=== PATIENT | female | born 1990 | race African-American/Black ===

== ENCOUNTER 2021-06-06 15:05 | Outpatient (REF) | payer MEDICAID, SELFPAY ==
[2021-06-07 05:47] LABS: CT PCR NOT DETECTED (Not Detect.); NG PCR NOT DETECTED (Not Detect.)
[2021-06-07 09:33] LABS: BV Int Neg Control Negative (Negative); BV Int Pos Control Positive (Positive)
[2021-06-10 02:22] LABS: HPV mRNA E6/E7 rflx Not Detected (Not Detected)
== END 2021-06-06 15:06 | disposition home or self-care (01) ==
LOC: HO.LAB 15:05
PROVIDERS: PCP Nurse Practitioner Family; Visit Provider Advanced Practice Midwife
DX: Z01.419 Encounter for gynecological examination (general) (routine) without abnormal findings (principal); F12.90 Cannabis use, unspecified, uncomplicated; Z20.2 Contact with and (suspected) exposure to infections with a predominantly sexual mode of transmission; Z32.02 Encounter for pregnancy test, result negative
CPT/HCPCS: 81025; 87480; 87491; 87510; 87591; 87624; 87660; 88142

== ENCOUNTER 2021-07-06 11:09 | Outpatient (REF) | payer MEDICAID, SELFPAY ==
[2021-07-07 12:14] LABS: BV Int Neg Control Negative (Negative); BV Int Pos Control Positive (Positive)
== END 2021-07-06 11:10 | disposition home or self-care (01) ==
LOC: HO.LAB 11:09
PROVIDERS: PCP Nurse Practitioner Family; Visit Provider Advanced Practice Midwife
DX: A59.9 Trichomoniasis, unspecified (principal); Z20.2 Contact with and (suspected) exposure to infections with a predominantly sexual mode of transmission
CPT/HCPCS: 87480; 87510; 87660; 99212

== ENCOUNTER 2022-08-14 13:51 | Outpatient (REF) | payer MEDICAID, SELFPAY ==
[2022-08-15 05:34] LABS: CT PCR NOT DETECTED (Not Detect.)
[2022-08-15 05:35] LABS: NG PCR NOT DETECTED (Not Detect.)
== END 2022-08-14 13:52 | disposition home or self-care (01) ==
LOC: HO.LNP 13:51
PROVIDERS: PCP Nurse Practitioner Family; Visit Provider Advanced Practice Midwife
DX: Z01.419 Encounter for gynecological examination (general) (routine) without abnormal findings (principal); Z20.2 Contact with and (suspected) exposure to infections with a predominantly sexual mode of transmission
CPT/HCPCS: 0353U

== ENCOUNTER 2023-10-16 10:21 | Outpatient (AMB) | payer OTHER, SELFPAY ==
[2023-10-16 10:38] VITALS: BP 116/60; BMI 40.9
--- NOTE | 2023-10-16 10:38 | A.OFFVIS_ITS ---
Vital Signs 10/16/23 10:38 Height 5 ft 3 in Weight 231 lb BMI 40.9 BP 116/60 Intake Visit Reasons: AUB Alternative Energy Engineer Required: No Information Interpreted: clinical only Coordinate Measuring Machine Operator: Coordinate Measuring Machine Operator Present Allergies No Known Allergies Allergy (Verified 10/16/23 10:38) Medication List - Last Reconciled 10/16/23 by Che Gan CNM cholecalciferol (vitamin D3) 25 mcg PO DAILY multivitamin (Daily Multi-Vitamin tablet) 1 tab PO DAILY Is last menstrual period known: Yes Last menstrual period: 09/20/23 Do you need a note to return to daycare/school/sports/work: No HPI HPI AUB: Details: Patient is here to explore abnormal bleeding her history is somewhat confusing but she thinks she had a normal. The beginning of August and then on September 19 the day after her birthday she started having irregular light bleeding and she has been bleeding 1 way or another since then sometimes it is a little heavier like her period now and sometimes it has just been spotting but it has not fully gone away since September 19. She is sexually active and she does not cont raceptive but she says she went to her primary care provider and some place else and did tests within the last few days and they were negative. She needs to urinate now before the exam so we will obtain another specimen as well. PFSH Family History Father Acute leukemia Paternal Grandmother HTN (hypertension) Maternal Grandmother Breast cancer Social History Household Members: Children Household Members Other:: lives with daughter. Alcohol intake: current Alcohol intake frequency: holidays/special occasions only Substance Use Type: Marijuana Current occupation: [employer] worker Gender identity: Female Female Reproductive History Menstrual Age of Menarche: 10 Duration of menses: other Date of last menstrual period: 09/20/23 control method: none Total pregnancies: 1 Full term: 1 Date of last pap smear: 06/07/21 (neg,previous pap 2016,neg.) History of abnormal pap smear: No Physical Exam Vital Signs: Last Vital Signs BP 116/60 10/16/23 10:38 BMI result Body Mass Index 40.9 Other: Moderate amount dark red menses from healthy appearing multiparous os. Cervix long close thick mobile nontender uterus anteverted mobile nontender does not feel especially enlarged. Good muscle External Female Exam: normal external appearance Speculum Exam - Vagina: normal appearance of the vagina and normal vaginal discharge Speculum Exam - Cervix: normal appearance of the cervix Bimanual exam- vagina & uterus: normal bimanual exam, uterine size normal, consistency normal, uterine mobility normal, uterine shape normal and non-tender Bimanual Exam- Adnexa, other: normal adnexae, no masses and No adnexal tenderness Assessment & Plan Assessment & Plan (1) Abnormal uterine bleeding (AUB): Code(s): N93.9 - Abnormal uterine and vaginal bleeding, unspecified Category: Medical (2) Prediabetes: Code(s): R73.03 - Prediabetes Category: Medical (3) Obesity, morbid, BMI 40.0-49.9: Comment: Has gained 30 lb in the last year was just told she is prediabetic.... Code(s): E66.01 - Morbid (severe) obesity due to excess calories Category: Medical Plan test= negative Will arrange for a pelvic ultrasound to assess intrauterine anatomy and for anything unusual. Discussed abnormal bleeding and its relationship to weight gain she says she is gained about 30 lb in the last year and on questioning about her visits with her primary she said she had lab work and it did come back in the prediabetic range she said her thyroid was normal and she was not too anemic with an hemoglobin of 11.1 and all her other labs were normal. Next step is a pelvic ultrasound if she felt any labs that her primary did were important asked her to sign a consent so that they could be shared with us she gets her lab work to [facility] when and she sees her primary care provider in [place] she lives another herself. 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 She would be interested in control as she has not planning on any more childbearing she has a 9-year-old. Discussed the relationship between weight gain and abnormal bleeding and the need to evaluate to make sure that this nothing dangerous going on we will start with a pelvic ultrasound and then after that endometrial biopsy at the follow-up visit most likely. Discussed possible use of a Mirena IUD or progestin only control pills to help manage her bleeding. She is going to be addressing prediabetes with her primary care provider. Orders: Orders US pelvic and transvaginal Today N93.9 - Abnormal uterine and vaginal bleeding, unspecified Coding Level of Care Code Est Pt Level 3 (05410) Diagnoses Abnormal uterine bleeding (AUB) N93.9 Prediabetes R73.03 Obesity, morbid, BMI 40.0-49.9 E66.01
== END 2023-10-16 11:33 | disposition home or self-care (01) ==
LOC: HO.HWSM 10:21
PROVIDERS: PCP Nurse Practitioner Family; Visit Provider Advanced Practice Midwife
DX: N93.9 Abnormal uterine and vaginal bleeding, unspecified (principal); R73.03 Prediabetes; E66.01 Morbid (severe) obesity due to excess calories; Z32.02 Encounter for pregnancy test, result negative
CPT/HCPCS: 99213

== ENCOUNTER 2023-10-16 10:21 | Outpatient (REF) | payer OTHER, SELFPAY ==
[2023-10-17 15:05] LABS: BV Int Neg Control Negative (Negative); BV Int Pos Control Positive (Positive)
[2023-10-17 15:34] LABS: CT PCR NOT DETECTED (Not Detect.); NG PCR NOT DETECTED (Not Detect.)
== END 2023-10-16 10:22 | disposition home or self-care (01) ==
LOC: HO.LAB 10:21
PROVIDERS: PCP Nurse Practitioner Family; Visit Provider Advanced Practice Midwife
DX: N93.9 Abnormal uterine and vaginal bleeding, unspecified (principal); R73.03 Prediabetes; E66.01 Morbid (severe) obesity due to excess calories; Z68.41 Body mass index [BMI] 40.0-44.9, adult; Z20.2 Contact with and (suspected) exposure to infections with a predominantly sexual mode of transmission
CPT/HCPCS: 0353U; 81025; 87480; 87510; 87660; 99212

== ENCOUNTER 2023-11-01 13:50 | Outpatient (AMB) | payer OTHER, SELFPAY ==
--- NOTE | 2023-11-01 13:53 | MHC.OFFVIS ---
Vital Signs 11/01/23 13:58 Height 5 ft 3 in Weight 231 lb BMI 40.9 BP 122/74 Intake Visit Reasons: BV follow up Sports Book Board Attendant Required: No Information Interpreted: clinical only Processor Inspector: Processor Inspector Present Allergies No Known Allergies Allergy (Verified 11/01/23 14:00) Medication List - Last Reconciled 11/01/23 by Che Gan CNM cholecalciferol (vitamin D3) 25 mcg PO DAILY multivitamin (Daily Multi-Vitamin tablet) 1 tab PO DAILY Is last menstrual period known: Yes Last menstrual period: 10/18/23 HPI HPI BV follow up: Details: Patient was scheduled today as an ultrasound follow-up but she missed her ultrasound appointment on October 24 and she still that a reminder to come to this appointment today at 01:30 so she is here for that. She did use the medication for the Metrogel and did notice an improvement in her discharge. The October 15. Ended and she is waiting on a next for the end the month she has not interested in any method of control at this time. [facility] Family History Father Acute leukemia Paternal Grandmother HTN (hypertension) Maternal Grandmother Breast cancer Social History Household Members: Children Household Members Other:: lives with daughter. Alcohol intake: current Alcohol intake frequency: holidays/special occasions only Substance Use Type: Marijuana Current occupation: [employer] worker Gender identity: Female Female Reproductive History Menstrual Age of Menarche: 10 Date of last menstrual period: 10/18/23 control method: none Physical Exam Vital Signs: Last Vital Signs BP 122/74 11/01/23 13:58 BMI result Body Mass Index 40.9 Assessment & Plan Assessment & Plan (1) Abnormal uterine bleeding (AUB): Code(s): N93.9 - Abnormal uterine and vaginal bleeding, unspecified Category: Medical Plan Reviewed that she has not interested in any kind of control at this time. She did notice an improvement in her discharge after taking the treatment for the BV. She is going to call and reschedule her ultrasound and then we will have a follow-up visit after that ultrasound. Coding Level of Care Code Est Pt Level 3 (10315) Diagnoses Abnormal uterine bleeding (AUB) N93.9
[2023-11-01 13:58] VITALS: BP 122/74; BMI 40.9
== END 2023-11-01 14:36 | disposition home or self-care (01) ==
LOC: HO.HWSM 13:50
PROVIDERS: PCP Nurse Practitioner Family; Visit Provider Advanced Practice Midwife
DX: N93.9 Abnormal uterine and vaginal bleeding, unspecified (principal)
CPT/HCPCS: 99213

== ENCOUNTER → 2023-11-01 13:50 | Outpatient (BNVA) | payer OTHER, SELFPAY | PROVIDERS: PCP Nurse Practitioner Family; Visit Provider Advanced Practice Midwife | DX: N93.9 Abnormal uterine and vaginal bleeding, unspecified (principal) | CPT/HCPCS: 99212 ==

== ENCOUNTER 2023-12-26 09:31 | Outpatient (AMB) | payer OTHER, SELFPAY ==
--- NOTE | 2023-12-26 09:37 | A.OFFVIS_ITS ---
Vital Signs 12/26/23 09:38 Height 5 ft 3 in Weight 222 lb BMI 39.3 Intake Visit Reasons: ? infection Poultry Offal Icer Required: No Poultry Offal Icer Services: Poultry Offal Icer Present Information Interpreted: clinical only Land Law Examiner: Land Law Examiner Present Allergies No Known Allergies Allergy (Verified 12/26/23 09:39) Medication List - Last Reconciled 12/26/23 by Che Gan CNM cholecalciferol (vitamin D3) 25 mcg PO DAILY multivitamin (Daily Multi-Vitamin tablet) 1 tab PO DAILY Is last menstrual period known: Yes Last menstrual period: 12/12/23 Do you need a note to return to daycare/school/sports/work: No HPI HPI ? infection: Details: Patient had made this appointment a couple of weeks ago and it got canceled and rescheduled. She had scheduled it because she thought she might have some sort of urinary tract infection and her primary care provider's office told her to check with her OB providers 1st. She had seen me a couple of months ago and I had ordered a pelvic ultrasound for her but she ended up talking with her primary care provider and went to a pelvic ultrasound at [facility] so she never went to the ultrasound that I ordered for her. She says she has not having any issues in that area anymore she says she was told she had a normal little cyst on her ovary that comes and goes with menstruation and she has not worried about it anymore. She does not exactly keep track for periods she has not been contraceptive thing she wants to get on control she gained a lot a weight on the Depo so she wants to get back on control pills she had been prescribed them over year ago but says she never started them. She would like to get on them now her last period was the end of November she had sex a few days ago and did not use protection she has not interested in blood work for STIs. On deep questioning she 1st said she was urinating a lot but she attributes it to drinking a lot of water because she has working out a lot she tries to go to the gym 3 to 4 times a week she is working hard on weight loss and achieving it. She does not smoke., she has no urinary urgency or discomfort she has frequency because she is drinking lots of water and her urine is clear. [facility] Family History Father Acute leukemia Paternal Grandmother HTN (hypertension) Maternal Grandmother Breast cancer Social History Household Members: Children Household Members Other:: lives with daughter. Alcohol intake: current Alcohol intake frequency: holidays/special occasions only Substance Use Type: Marijuana Current occupation: D[employer] worker Gender identity: Female Female Reproductive History Menstrual Age of Menarche: 10 Duration of menses: 3-5 days Date of last menstrual period: 12/12/23 control method: none Total pregnancies: 1 Full term: 1 Date of last pap smear: 06/06/21 (negative,2017,WNL) History of abnormal pap smear: No Physical Exam Vital Signs: BMI result Body Mass Index 39.3 Assessment & Plan Assessment & Plan (1) Encounter for screening examination for sexually transmitted disease: Code(s): Z11.3 - Encounter for screening for infections with a predominantly sexual mode of transmission Category: Medical (2) Vaginal discharge: Code(s): N89.8 - Other specified noninflammatory disorders of vagina Category: Medical (3) BCP ( control pills) initiation: Code(s): Z30.011 - Encounter for initial prescription of contraceptive pills Category: Medical (4) Increased urinary frequency: Comment: We will send UA C&S but it is most likely because she is drinking lots of water because she is working out trying to lose weight. Code(s): R35.0 - Frequency of micturition Category: Medical Plan Reviewed her history and symptoms in great detail. Teaching done about bacterial vaginosis and bacteria that is tested for is commonly present in our vagina is and only needs to be treated if she is having symptoms and she can decide whether not she needs treatment they call her with the positive test. Testing done for vaginal STIs. Discussed control she would like to get back on pills so I am re prescribing them for her and she should start within the 1st 2-3 days of her next menses and take 1 pills same time every single day and I described exactly how to take them in the pill pack and use the day of the week sticker as well and she should go from 1 pack to the next if her period does not come she can do a test but continue on if it is negative. We will see her in 3 months she denied any contraindications and I did give her warning signs to watch for. We will send a UA C&S but I doubt it will show anything. She does not feel she needs an ultrasound anymore and since she went to [facility] for the ultrasound her primary care provider ordered for her around the same time I am cancelling the ultrasound order. We will see her in 3 months. Medications: Refilled desogestrel-ethinyl estradiol 0.15-0.03 mg (Apri) 1 tab PO DAILY 28 tabs 4RF Coding Level of Care Code Est Pt Level 3 (18624) Diagnoses Encounter for screening examination for sexually transmitted disease Z11.3 Vaginal discharge N89.8 BCP ( control pills) initiation Z30.011 Increased urinary frequency R35.0
[2023-12-26 09:38] VITALS: BMI 39.3
== END 2023-12-26 10:22 | disposition home or self-care (01) ==
LOC: HO.HWSM 09:31
PROVIDERS: PCP Nurse Practitioner Family; Visit Provider Advanced Practice Midwife
DX: Z11.3 Encounter for screening for infections with a predominantly sexual mode of transmission (principal); N89.8 Other specified noninflammatory disorders of vagina; Z30.011 Encounter for initial prescription of contraceptive pills; R35.0 Frequency of micturition
CPT/HCPCS: 99213

== ENCOUNTER 2023-12-26 09:31 | Outpatient (REF) | payer OTHER, SELFPAY ==
[2023-12-27 04:46] LABS: CT PCR NOT DETECTED (Not Detect.); NG PCR NOT DETECTED (Not Detect.)
[2023-12-27 11:49] LABS: Bacterial Vaginosis PCR POSITIVE (Negative); Candida Group PCR NOT DETECTED (Not Detect); Candida glab krusei PCR NOT DETECTED (Not Detect); Trichomonas vaginalis PCR DETECTED (Not Detect)
== END 2023-12-26 09:32 | disposition home or self-care (01) ==
LOC: HO.LAB 09:31
PROVIDERS: PCP Nurse Practitioner Family; Visit Provider Advanced Practice Midwife
DX: Z11.3 Encounter for screening for infections with a predominantly sexual mode of transmission (principal); R10.2 Pelvic and perineal pain; N89.8 Other specified noninflammatory disorders of vagina; R35.0 Frequency of micturition
CPT/HCPCS: 0352U; 87086; 87491; 87591; 99212

== ENCOUNTER 2023-12-26 10:28 | Outpatient (REF) | payer OTHER, SELFPAY | END 2023-12-26 10:29 | disposition home or self-care (01) | LOC: HO.LNP 10:28 | PROVIDERS: Visit Provider Advanced Practice Midwife | DX: Z13.89 Encounter for screening for other disorder (principal) ==

== ENCOUNTER 2024-02-07 15:09 | Outpatient (AMB) | payer OTHER, SELFPAY ==
[2024-02-07 15:13] VITALS: BP 120/70; BMI 39.3
--- NOTE | 2024-02-07 15:13 | A.OFFVIS_ITS ---
Vital Signs 02/07/24 15:13 Height 5 ft 3 in Weight 222 lb BMI 39.3 BP 120/70 Intake Visit Reasons: Annual/ daniela Publications Editor Required: No Publications Editor Services: Publications Editor Present Information Interpreted: clinical only Supplier Development Manager: Supplier Development Manager Present Allergies No Known Allergies Allergy (Verified 02/07/24 15:13) Is last menstrual period known: Yes Last menstrual period: 01/30/24 Do you need a note to return to daycare/school/sports/work: No HPI HPI Annual/ daniela: Details: Patient is on the schedule as an annual and also a test of cure for trichomoniasis she also was given control pills at her most recent visit and she has been doing well on those and she likes them was 1 time when she was a few hours late with a pill she has not had sex since that episode was last week so I recommend that if she does have sex any time in the next couple of weeks she should use condoms and any time she is late or has a question of a missed pill to use condoms for 2 weeks to be a backup. She informs me that she had the trichomoniasis with the father of her child several years ago and broke up within afterwards because of it and this most recent partner that she started a few months ago had given her the trich and she was told by him that he got seen in treated but had sex with him a little while ago and did not feel well after and decided to part ways and wants to be checked for everything to be sure she does not believe she ever had an abnormal Pap smear but last Pap smear negative in the system 2020 with positive trich. PFSH Family History Father Acute leukemia Paternal Grandmother HTN (hypertension) Maternal Grandmother Breast cancer Social History Household Members: Children Household Members Other:: lives with daughter. Alcohol intake: current Alcohol intake frequency: holidays/special occasions only Substance Use Type: Marijuana Current occupation: DDS worker Gender identity: Female Female Reproductive History Menstrual Age of Menarche: 10 Duration of menses: 3-5 days Date of last menstrual period: 01/30/24 control method: pills Total pregnancies: 1 Full term: 1 Date of last pap smear: 06/07/21 (neg) Physical Exam Vital Signs: Last Vital Signs BP 120/70 02/07/24 15:13 BMI result Body Mass Index 39.3 Results Reviewed Results Reviewed: Name: Racheal Wu Age/Sex: 33/F : 1990 Unit#: [id number] Attend Dr: Che Gan CNM Re12/26/23 Status: DEP [facility] Disch: SPEC : [id number] MARTITA: 12/26/23-UNK STATUS: COMP REQ : [id number] RECD: 12/26/[address] [facility] [address]: Che Gan CNM COMP: 12/27/23-1150 ENTERED: 12/26/[address]: Ally Campbell NP ORDERED: BV Panel Test Result Flag Reference TV PCR DETECTED A Not Detect BV PCR POSITIVE A Negative The BV organism targets of the Xpert Xpress MVP test can be commensal in women; Xpert Xpress MVP positive results for bacterial vaginosis should be considered in conjunction with other clinical and patient information to determine the disease status. Organisms that are not detected by the Xpert Xpress MVP test have also been reported to be associated with BV and aerobic vaginitis. The Xpert Xpress MVP test performance has not been evaluated in patients under the age of 14. Tana Grp PCR NOT DETECTED Not Detect Can gla-kru NOT DETECTED Not Detect Name: Racheal Wu Age/Sex: 30/F Attending: Che Gan CNM : 1990 Submitted by: Che Gan CNM Copies to: Ally Campbell NP MR #: [id number] Status: DEP REF Collected: 06/06/21 [facility] Received: 06/07/21 Interpretation Satisfactory for evaluation. Coccobacilli consistent with shift in vaginal sima. Microorganisms consistent with Trichomonas vaginalis. Negative for intraepithelial lesion or malignancy. HPV mRNA E6/E7: NOT DETECTED This assay detects E6/E7 viral messenger RNA (mRNA) from 14 high-risk HPV types (16, 18, 31, 33, 35, 39, 45, 51, 52, 56, 58, 59, 66, 68) HPV testing performed by [facility], [place], [place]. See reference laboratory portion of the EMR for entire report. Clinical Information LMP: 05/20/21 Previous PAP test:2017, WN Material Received ThinPrep- Cervical Copies To Che Gan [address] [place] [address] Ally Campbell DIRECTOR OF MEDICARE [address] [place], [place] [id number] Electronically Signed By: ANSLEY Kee (ASCP) 06/16/21 1310 The Pap Test is a screening procedure with the inherent possibility of both false negative and false positive results. Results should be interpreted in the context of historic and current clinical findings. Reliability of the Pap Test is enhanced by performing the test on a regular repetitive basis. Patient: Racheal Wu Age/Sex: 30/F MR#: [id number] Page 1 of 1 Assessment & Plan Assessment & Plan (1) Encounter for screening examination for sexually transmitted disease: Code(s): Z11.3 - Encounter for screening for infections with a predominantly sexual mode of transmission Category: Medical (2) Trichomoniasis: Comment: per 06/06/21 testing. rxd w flagyl per rn, daniela 07/06/21. pos trich 12/26/23. needs rx( sent),and partner rx, and teaching and daniela. Code(s): A59.9 - Trichomoniasis, unspecified Category: Medical (3) Cervical cancer screening: Comment: 06/06/21 pap neg., neg hpv. Code(s): Z12.4 - Encounter for screening for malignant neoplasm of cervix Category: Medical (4) Well woman exam with routine gynecological exam: Code(s): Z01.419 - Encounter for gynecological examination (general) (routine) without abnormal findings Category: Medical (5) Prediabetes: Code(s): R73.03 - Prediabetes Category: Medical (6) Obesity, morbid, BMI 40.0-49.9: Comment: Has gained 30 lb in the last year was just told she is prediabetic.... Code(s): E66.01 - Morbid (severe) obesity due to excess calories Category: Medical (7) Counseling for control, oral contraceptives: Code(s): Z30.09 - Encounter for other general counseling and advice on contraception Category: Medical Plan -----Discussed in this visit the following: healthy balanced diet, regular and consistent exercise, getting recommended health screens, doing the best she can for her particular health concerns, kegel exercises, pap smear screening and followup recommendations, mammography screening and SBE, normal changes in cycles in her life stage--- . Reviewed the control pills and she is not having any negative side effects reviewed timing of taking them she is generally being very good about that with 1 late pill last week discussed using a backup method is 2 weeks after any possible late pill or missed pill to protect herself from unintended We reviewed safer sex in some detail and the challenges of trusting someone in a relationship and having them transmitt an STD. Recommend condoms as a default all the time. She is not having any negative side effects to the pills and I sent a prescription for year is worth that her last visit since she is doing well and her blood pressure is within normal limits we can cancel the next pill check visit so as not to have duplicative visits. She can get the lab work done for STI checks whenever she wants at any [facility] lab. Orders: Orders Hepatitis B Surface Antigen Today Z11.3 - Encounter for screening for infections with a predominantly sexual mode of transmission HIV Ab/Ag Today Z11.3 - Encounter for screening for infections with a predominantly sexual mode of transmission CT NG by PCR Today N89.8 - Other specified noninflammatory disorders of vagina, Z20.2 - Contact with and (suspected) exposure to infections with a predominantly sexual mode of transmission Hepatitis C Antibody Today Z11.3 - Encounter for screening for infections with a predominantly sexual mode of transmission Syphilis Screen Today Z11.3 - Encounter for screening for infections with a predominantly sexual mode of transmission Bacterial Vaginosis Panel Today N89.8 - Other specified noninflammatory disorders of vagina PAP + HPV E6/E7 rfx 18/45 Today Z01.419 - Encounter for gynecological examination (general) (routine) without abnormal findings Coding Level of Care Code Est Pt Prev Care 18-39y([id number]) Diagnoses Encounter for screening examination for sexually transmitted disease Z11.3 Trichomoniasis A59.9 Cervical cancer screening Z12.4 Well woman exam with routine gynecological exam Z01.419 Prediabetes R73.03 Obesity, morbid, BMI 40.0-49.9 E66.01 Counseling for control, oral contraceptives Z30.09
== END 2024-02-07 15:52 | disposition home or self-care (01) ==
PROVIDERS: PCP Nurse Practitioner Family; Visit Provider Advanced Practice Midwife
DX: Z01.419 Encounter for gynecological examination (general) (routine) without abnormal findings (principal); A59.9 Trichomoniasis, unspecified; R73.03 Prediabetes; E66.01 Morbid (severe) obesity due to excess calories
CPT/HCPCS: 99395

== ENCOUNTER 2024-02-07 15:09 | Outpatient (REF) | payer OTHER, SELFPAY ==
[2024-02-08 03:06] LABS: CT PCR NOT DETECTED (Not Detect.); NG PCR NOT DETECTED (Not Detect.)
[2024-02-08 10:43] LABS: Bacterial Vaginosis PCR POSITIVE (Negative); Candida Group PCR DETECTED (Not Detect); Candida glab krusei PCR NOT DETECTED (Not Detect); Trichomonas vaginalis PCR NOT DETECTED (Not Detect)
== END 2024-02-07 15:10 | disposition home or self-care (01) ==
LOC: HO.LAB 15:09
PROVIDERS: PCP Nurse Practitioner Family; Visit Provider Advanced Practice Midwife
DX: Z01.419 Encounter for gynecological examination (general) (routine) without abnormal findings (principal); N89.8 Other specified noninflammatory disorders of vagina; Z20.2 Contact with and (suspected) exposure to infections with a predominantly sexual mode of transmission
CPT/HCPCS: 0352U; 87491; 87591; 99395

== ENCOUNTER 2024-02-07 15:47 | Outpatient (REF) | payer OTHER, SELFPAY ==
[2024-02-08 08:28] LABS: HBsAGNum1 0.37 S/CO (0.00-0.99); HIV AB/AG Nonreactive (Nonreactive); HIV Num 1 0.05 S/CO (0.00-0.99); Hepatitis B Surface Antigen Negative (Negative); ~HepC Num1 0.14 S/CO (0.00-0.79); ~Hepatitis C Antibody Nonreactive (Nonreactive)
[2024-02-08 08:32] LABS: Syphilis Screen Nonreactive (Nonreactive)
[2024-02-11 14:19] LABS: HPV mRNA E6/E7 Not Detected (Not Detected)
== END 2024-02-07 15:48 | disposition home or self-care (01) ==
LOC: HO.HHCL 15:47
PROVIDERS: Visit Provider Advanced Practice Midwife
DX: N89.8 Other specified noninflammatory disorders of vagina (principal); Z11.3 Encounter for screening for infections with a predominantly sexual mode of transmission
CPT/HCPCS: 36415; 86780; 86803; 87340; 87389; 87624; 88175